=== PATIENT | female | born 1965 | race Caucasian/White ===

== ENCOUNTER 2018-09-17 06:23 | Day surgery (SDC) | payer BC, OTHER ==
[2018-09-17] MEDS ORDERED: Lactated Ringers 1,000 ML IV SCH (06:30)
[2018-09-17] MEDS ORDERED: fentaNYL 100 MCG/2 ML SDV ONE (07:29)
[2018-09-17] MEDS ORDERED: Propofol 200 MG/20 ML SDV ONE (07:29)
[2018-09-17] MEDS ORDERED: Midazolam 1 MG/ML 2 ML SDV ONE (07:29)
[2018-09-17] MEDS ORDERED: ceFAZolin 2 GM in Premix Bag 1 BAG IV ONE (07:30)
[2018-09-17] MEDS ORDERED: Dextrose 5%-Lactated Ringers 1,000 ML IV SCH (07:30)
[2018-09-17 09:00] VITALS: BP 126/65
--- NOTE | 2018-09-17 11:40 | OR ---
DATE OF PROCEDURE: 09/17/2018 PREOPERATIVE DIAGNOSIS: Colon cancer screening. POSTOPERATIVE DIAGNOSIS: Unremarkable. PROCEDURE: Colonoscopy to the cecum. SURGEON: Joo Márquez MD ANESTHESIA: IV anesthesia with monitored anesthesia care. INDICATION: This 52-year-old white female is referred for a colonoscopy for colon cancer screening. She has never had a colonoscopic exam. She says her brother has Crohn's disease. I counseled her for a colonoscopy with possible biopsy and/or polypectomy, including risks and alternatives, and she gave her informed consent to proceed. DESCRIPTION OF PROCEDURE: The patient was placed in the left lateral decubitus position. IV anesthesia was administered by the Anesthesia Service. Time-out was held. A rectal exam was performed, which was unremarkable. The flexible video Olympus colonoscope was introduced through her anus, up her rectum and out her colon, all the way to the cecum. Once the cecum was reached, the scope was slowly withdrawn examining the mucosa throughout. No mucosal abnormalities were noted. The scope was retroflexed in the rectum with the distal rectum appearing unremarkable. The scope was straightened and removed. She tolerated the procedure well. Joo Márquez MD /[id number]
== END 2018-09-17 09:10 | disposition home or self-care (01) ==
LOC: JP.SDS 06:23
PROVIDERS: ATTEND Surgery
DX: Z12.11 Encounter for screening for malignant neoplasm of colon (principal); E66.01 Morbid (severe) obesity due to excess calories; Z68.32 Body mass index [BMI] 32.0-32.9, adult; Z88.5 Allergy status to narcotic agent; Z83.79 Family history of other diseases of the digestive system
CPT/HCPCS: 45378; J2250; J2704; J3010; J7120

== ENCOUNTER 2020-10-09 20:42 | Emergency (ER) | payer BC ==
[2020-10-09 21:00] VITALS: BP 151/89; PULSE 94
--- NOTE | 2020-10-09 21:40 | EDM.PDOC ---
ED HPI GENERAL MEDICAL PROBLEM - General Chief Complaint: Lower Extremity Injury/Pain Stated Complaint: RIGHT LEG CRAMPING Time Seen by Provider: 10/09/20 21:21 Source of Information: Reports: Patient, Family () History Limitations: Reports: No Limitations - History of Present Illness INITIAL COMMENTS - FREE TEXT/NARRATIVE: chief complaint: left leg cramps for the past few months. This is a 54 year old female present to the ER with , reports having leg cramps for the past few months, but tonight she had 3 episodes of cramps. The pain was so intense her ankle and foot turned inward and even extended into the upper leg. denies any fever, chills, nausea, vomiting, diarrhea, recent illness, medication changes, new diet or exercise program. no changes in diet, lifestyle or environment in the past few months. Onset: Gradual Onset Date: 07/27/20 Duration: Waxing/Waning, Other (2 or more months) Location: Reports: Lower Extremity, Left Quality: Reports: Ache, Other (muscle cramps) Severity: Severe (severe pain at the time of cramps for about 10 mins then resolved.) Improves with: Reports: Rest Worsens with: Reports: None Context: Reports: Other (reports no other concerns.) Associated Symptoms: Reports: No Other Symptoms Right Leg Pain Score (Numeric/FACES): 4 - Related Data Allergies Allergy/AdvReac Type Severity Reaction Status Date / Time tramadol Allergy Nausea Verified 09/15/18 10:21 Home Meds: Home Meds Acetaminophen [Tylenol] 650 mg PO DAILY PRN 09/15/18 [History] Loratadine [Claritin] 10 mg PO DAILY 09/15/18 [History] Melatonin 5 mg PO BEDTIME PRN 09/15/18 [History] Past Medical History HEENT History: Reports: None Gastrointestinal History: Reports: Bowel Obstruction Genitourinary History: Reports: None [employer] History: Reports: Dysfunctional Uterine Bleeding, Musculoskeletal History: Reports: None Psychiatric History: Reports: Depression Hematologic History: Reports: B12 Deficiency - Infectious Disease History Infectious Disease History: Reports: Chicken Pox - Past Surgical History HEENT Surgical History: Reports: Tonsillectomy GI Surgical History: Reports: Appendectomy, Bariatric Procedure Female Surgical History: Reports: Hysterectomy Musculoskeletal Surgical History: Reports: Shoulder Surgery Dermatological Surgical History: Reports: None Social & Family History - Family History HEENT: Reports: Cataract Cardiac: Reports: CAD GI: Reports: Bowel Obstruction, Other (See Below) Other GI Family History: brother has colitis and chrons OBGYN: Reports: Dysfunctional uterine bleeding Musculoskeletal: Reports: Arthritis Endocrine/Metabolic: Reports: Diabetes, type II - Tobacco Use Tobacco Use Status *Q: Never Tobacco User Second Hand Smoke Exposure: Yes - Caffeine Use Caffeine Use: Reports: Coffee, Tea - Alcohol Use Date of Last Drink: 10/09/20 Review of Systems - Review of Systems Review Of Systems: See Below Constitutional: Reports: No Symptoms Eyes: Reports: No Symptoms Ears: Reports: No Symptoms Nose: Reports: No Symptoms Mouth/Throat: Reports: No Symptoms Respiratory: Reports: No Symptoms Cardiovascular: Reports: No Symptoms GI/Abdominal: Reports: No Symptoms Genitourinary: Reports: No Symptoms Musculoskeletal: Reports: Leg Pain (intermittent muscle cramps, reports no pain or cramps at this time) Skin: Reports: No Symptoms Neurological: Reports: No Symptoms Psychiatric: Reports: No Symptoms ED EXAM, GENERAL - Physical Exam Exam: See Below Exam Limited By: No Limitations General Appearance: Alert, WD/WN, No Apparent Distress Ears: Normal External Exam Nose: Normal Inspection Throat/Mouth: Normal Inspection Head: Atraumatic, Normocephalic Neck: Normal Inspection, Supple, Non-Tender, Full Range of Motion Respiratory/Chest: No Respiratory Distress, Lungs Clear, Normal Breath Sounds Cardiovascular: Normal Peripheral Pulses, Regular Rate, Rhythm, No Edema, No Gallop, No JVD, No Murmur, No Rub Peripheral Pulses: 2+: Radial (L), Radial (R), Femoral (L), Femoral (R), Dorsalis Pedis (L), Dorsalis Pedis (R) GI/Abdominal: Normal Bowel Sounds, Soft, Non-Tender, No Organomegaly, No Distention (Female) Exam: Deferred Rectal (Female) Exam: Deferred Back Exam: Normal Inspection Extremities: Normal Inspection, Normal Range of Motion, Non-Tender, No Pedal Edema, Normal Capillary Refill. No: Leeann's Sign, Leg Pain Neurological: Alert, Oriented, CN II-XII Intact, Normal Cognition, Normal Gait, Normal Reflexes, No Motor/Sensory Deficits Psychiatric: Normal Affect, Normal Mood Skin Exam: Warm, Dry, Intact, Normal Color, No Rash Lymphatic: No Adenopathy Course - Vital Signs Last Recorded V/S: Last Vital Signs Temp 97.5 F 10/09/20 21:19 Pulse 94 10/09/20 21:19 Resp 16 10/09/20 21:19 BP 151/89 H 10/09/20 21:19 Pulse Ox 98 10/09/20 21:19 - Orders/Labs/Meds Orders: Active Orders 24 hr Category Date Time Status Cyanocobalamin (Vitamin B12) [Vitamin B12] Med 10/09/20 23:20 Once 1,000 mcg IM ONETIME ONE Labs: Laboratory Tests 10/09/20 10/09/20 10/09/20 Range/Units 21:40 21:40 21:40 WBC 9.7 (4.5-11.0) K/uL RBC 4.81 (3.30-5.50) M/uL Hgb 10.4 L D (12.0-15.0) g/dL Hct 33.5 L (36.0-48.0) % MCV 70 L (80-98) fL MCH 22 L (27-31) pg MCHC 31 L (32-36) % Plt Count 464 H (150-400) K/uL Neut % (Auto) 65 (36-66) % Lymph % (Auto) 23 L (24-44) % [place] % (Auto) 9 H (2-6) % Eos % (Auto) 2 (2-4) % Baso % (Auto) 0 (0-1) % D-Dimer, Quantitative 341.99 (0.0-500.0) ng/mL Sodium (140-148) mmol/L Potassium (3.6-5.2) mmol/L Chloride (100-108) mmol/L Carbon Dioxide (21-32) mmol/L Anion Gap (5.0-14.0) mmol/L BUN (7-18) mg/dL Creatinine (0.6-1.0) mg/dL Est Cr Clr Drug Dosing mL/min Estimated GFR (MDRD) (>60) Glucose (74-106) mg/dL Calcium (8.5-10.1) mg/dL Magnesium (1.8-2.4) mg/dL Total Bilirubin (0.2-1.0) mg/dL AST (15-37) U/L ALT (12-78) U/L Alkaline Phosphatase (46-116) U/L Total Protein (6.4-8.2) g/dL Albumin (3.4-5.0) g/dL Globulin (2.3-3.5) g/dL Albumin/Globulin Ratio (1.2-2.2) Vitamin B12 (193-986) pg/ml TSH, Ultra Sensitive 3.032 (0.358-3.740) uIU/mL Urine Color (YELLOW) Urine Appearance (CLEAR) Urine pH (5.0-8.0) Ur Specific [place] (1.008-1.030) Urine Protein (NEGATIVE) mg/dL Urine Glucose (UA) (NEGATIVE) mg/dL Urine Ketones (NEGATIVE) mg/dL Urine Occult Blood (NEGATIVE) Urine Nitrite (NEGATIVE) Urine Bilirubin (NEGATIVE) Urine Urobilinogen (0.2-1.0) EU/dL Ur Leukocyte Esterase (NEGATIVE) Urine RBC (0-5) Urine WBC (0-5) Ur Epithelial Cells Amorphous Sediment Urine Bacteria Urine Mucus 10/09/20 10/09/20 10/09/20 Range/Units 21:40 21:53 22:39 WBC (4.5-11.0) K/uL RBC (3.30-5.50) M/uL Hgb (12.0-15.0) g/dL Hct (36.0-48.0) % MCV (80-98) fL MCH (27-31) pg MCHC (32-36) % Plt Count (150-400) K/uL Neut % (Auto) (36-66) % Lymph % (Auto) (24-44) % [place] % (Auto) (2-6) % Eos % (Auto) (2-4) % Baso % (Auto) (0-1) % D-Dimer, Quantitative (0.0-500.0) ng/mL Sodium 145 (140-148) mmol/L Potassium 4.1 (3.6-5.2) mmol/L Chloride 106 (100-108) mmol/L Carbon Dioxide 27 (21-32) mmol/L Anion Gap 12.2 (5.0-14.0) mmol/L BUN 20 H D (7-18) mg/dL Creatinine 0.9 (0.6-1.0) mg/dL Est Cr Clr Drug Dosing 60.27 mL/min Estimated GFR (MDRD) > 60 (>60) Glucose 76 (74-106) mg/dL Calcium 9.1 (8.5-10.1) mg/dL Magnesium 2.4 (1.8-2.4) mg/dL Total Bilirubin 0.2 (0.2-1.0) mg/dL AST 18 (15-37) U/L ALT 32 (12-78) U/L Alkaline Phosphatase 111 (46-116) U/L Total Protein 6.6 (6.4-8.2) g/dL Albumin 3.8 (3.4-5.0) g/dL Globulin 2.8 (2.3-3.5) g/dL Albumin/Globulin Ratio 1.4 (1.2-2.2) Vitamin B12 92 L (193-986) pg/ml TSH, Ultra Sensitive (0.358-3.740) uIU/mL Urine Color Yellow (YELLOW) Urine Appearance Clear (CLEAR) Urine pH 5.5 (5.0-8.0) Ur Specific [place] 1.010 (1.008-1.030) Urine Protein Negative (NEGATIVE) mg/dL Urine Glucose (UA) Negative (NEGATIVE) mg/dL Urine Ketones Negative (NEGATIVE) mg/dL Urine Occult Blood Negative (NEGATIVE) Urine Nitrite Negative (NEGATIVE) Urine Bilirubin Negative (NEGATIVE) Urine Urobilinogen 0.2 (0.2-1.0) EU/dL Ur Leukocyte Esterase Trace H (NEGATIVE) Urine RBC 0-5 (0-5) Urine WBC 0-5 (0-5) Ur Epithelial Cells Rare Amorphous Sediment Not seen Urine Bacteria Not seen Urine Mucus Not seen - Re-Assessments/Exams Free Text/Narrative Re-Assessment/Exam: 10/09/20 21:45 leg cramps of unknown origin. Discussed with Mr. and MrsMikaela Duran the possible causes of leg cramp, which can be imbalance of electrolyte, overuse, or unknown will rule out any electrolyte imbalance order labs CBC, CMP, UA, TSH, D-DIMER, MG++, Ua with micro they agree with plan of care 10/09/20 22:07 CBC- wbc 9.7, hgb 10.4, hct 33.5, plt 464 urine negative for infection or ketones vitamin B12 TSH (thyroid) normal Glucose normal range D-Dimer normal 10/09/20 22:53 -all labs normal -discussed treatment options for muscle cramps can take one the following at needed for leg cramps -benadryl 25 mg to 50 mg at bedtime -Vit. E 400 IU take two at bedtime -Quinidine 200 mg take one in am and at bedtime. -Vitamin B complex three times a day Departure - Departure Time of Disposition: 23:25 Disposition: Home, Self-Care 01 Condition: Good Clinical Impression: Muscle cramps, B12 deficiency - Discharge Information *PRESCRIPTION DRUG MONITORING PROGRAM REVIEWED*: Not Applicable *COPY OF PRESCRIPTION DRUG MONITORING REPORT IN PATIENT AUDREY: Not Applicable Instructions: Muscle Cramps and Spasms, [id number], Vitamin B12 Deficiency, [id number], Vitamin B12 Deficiency Referrals: PCP,None [Primary Care Provider] - Forms: ED Department Discharge Care Plan Goals: Muscle cramps -labs normal for acute illness or disease except hemoglobin -does have a low hemoglobin which can be corrected with protein or iron supplement daily -can take one the following at needed for leg cramps -benadryl 25 mg to 50 mg at bedtime -Vit. E 400 IU take two at bedtime -Quinidine 200 mg take one in am and at bedtime. -Vitamin B complex three times a day push fluids, rest follow up in [facility] for recheck return to ER if not improved or symptoms worsen B12 def. -does have a low hemoglobin which can be corrected with protein or iron supplement daily and B12 replacement -Vitamin B 12 level is below normal at 92 (normal range 193 to 986) -this can be the cause of low hemoglobin and leg cramps -given B12 1000mcg IM in ER -will need to recheck in one month with [facility] Sepsis Event Note (ED) - Evaluation Sepsis Screening Result: No Definite Risk - Focused Exam Vital Signs: Vital Signs Temp Pulse Resp BP Pulse Ox 10/09/20 21:19 97.5 F 94 16 151/89 H 98 10/09/20 20:58 97.5 F 94 16 151/89 H 98 - Problem List & Annotations (1) B12 deficiency SNOMED Code(s): 525975389 Code(s): E53.8 - DEFICIENCY OF OTHER SPECIFIED B GROUP VITAMINS Status: Acute Priority: High Current Visit: Yes (2) Muscle cramps SNOMED Code(s): 00214055 Code(s): R25.2 - CRAMP AND SPASM Status: Acute Priority: High Current Visit: Yes - Problem List Review Problem List Initiated/Reviewed/Updated: Yes - My Orders Last 24 Hours: My Active Orders 10/09/20 23:20 Cyanocobalamin (Vitamin B12) [Vitamin B12] 1,000 mcg IM ONETIME ONE - Assessment/Plan Last 24 Hours: My Active Orders 10/09/20 23:20 Cyanocobalamin (Vitamin B12) [Vitamin B12] 1,000 mcg IM ONETIME ONE Plan: Muscle crampsMuscle cramps -labs normal for acute illness or disease except hemoglobin -does have a low hemoglobin which can be corrected with protein or iron supplement daily -can take one the following at needed for leg cramps -benadryl 25 mg to 50 mg at bedtime -Vit. E 400 IU take two at bedtime -Quinidine 200 mg take one in am and at bedtime. -Vitamin B complex three times a day push fluids, rest follow up in [facility] for recheck return to ER if not improved or symptoms worsen B12 def. -does have a low hemoglobin which can be corrected with protein or iron supplement daily and B12 replacement -Vitamin B 12 level is below normal at 92 (normal range 193 to 986) -this can be the cause of low hemoglobin and leg cramps -given B12 1000mcg IM in ER -will need to recheck in one month with [facility]
[2020-10-09] MEDS: Cyanocobalamin (Vitamin B12) 1,000 MCG/ML SDV IM ONE (23:35)
== END 2020-10-09 23:36 | disposition home or self-care (01) ==
LOC: JP.ED 20:42
DX: R25.2 Cramp and spasm (principal); E53.8 Deficiency of other specified B group vitamins; Z88.5 Allergy status to narcotic agent; Z77.22 Contact with and (suspected) exposure to environmental tobacco smoke (acute) (chronic)
CPT/HCPCS: 36415; 80053; 81001; 82607; 83735; 84443; 85025; 85379; 96372; 99282; 99283; J3420

== ENCOUNTER 2022-02-05 17:32 | Emergency (ER) | payer BC, OTHER ==
[2022-02-05] MEDS: Ondansetron 4 MG/2 ML SDV IVPUSH ONE (18:59)
[2022-02-05] MEDS: fentaNYL 100 MCG/2 ML SDV IVPUSH ONE (19:06)
[2022-02-05 19:15] LABS: ESTIMATED GFR 74 mL/min (>60); TROPONIN I HIGH SENSITIVITY 5.7 pg/mL (<=60.3)
[2022-02-05] MEDS: Sodium Chloride 0.9% 75 ML IV SCH (20:00)
[2022-02-05] MEDS: Iopamidol 612 MG/ML 100 ML Bottle IV SCH (20:00)
[2022-02-05] MEDS: Lactated Ringers 1,000 ML IV SCH (20:14)
[2022-02-05] MEDS: Sodium Chloride 0.9% 10 ML Syringe FLUSH PRN (21:00)
[2022-02-05 21:04] VITALS: BP 150/74; PULSE 74
== END 2022-02-05 21:39 | disposition home or self-care (01) ==
LOC: JP.ED 17:32
DX: K57.32 Diverticulitis of large intestine without perforation or abscess without bleeding (principal); Z88.5 Allergy status to narcotic agent; Z20.822 Contact with and (suspected) exposure to COVID-19
CPT/HCPCS: 36415; 74177; 80053; 81001; 83605; 83690; 84484; 85025; 87086; 87088; 87186; 87635; 96361; 96374; 96375; 99284; J2405; J3010; J3490; J7120; Q9967; U0002